=== PATIENT | male | born 1945 | race Caucasian/White ===

== ENCOUNTER 2017-05-02 13:59 | Emergency (ER) | payer OTHER ==
[2017-05-02 14:04] VITALS: BP 148/68; PULSE 58; RESP 18; TEMP 97.7; O2SAT 97
[2017-05-02] MEDS ORDERED: PROPARACAINE 0.5% 15 ML OPHT DROP OP ONE (14:12)
[2017-05-02] MEDS ORDERED: FLUORESCEIN SODIUM 1 MG STRIP OP ONE (14:12)
--- NOTE | 2017-05-02 14:33 | EDPHY ---
H & P Stated Complaint: irritated weepy l eye today - Personal History Current Tetanus/Diphtheria Vaccine: Yes - Medical/Surgical History Hx Asthma: No Hx Chronic Respiratory Disease: No Hx Diabetes: No Hx Cardiac Disease: No Hx Renal Disease: No Hx Cirrhosis: No Hx Alcoholism: No Hx HIV/AIDS: No Hx Splenectomy or Spleen Trauma: No Other PMH: prostate cancer - Social History Smoking Status: Never smoked HPI/ROS: Chief complaint: Left eye pain History of present illness: 71-year-old male presents to the emerged department for left eye pain. Patient states pain began this morning upon getting up. He has had associated tearing. He does wear hard contact lenses, he has not placed them in since symptoms began. He does not feel like his vision is changed with this. He denies other associated signs or symptoms including no fevers, no cold symptoms, no trauma, no pustules discharge from the eye. He does state his contact has been bothering him for the last week. He does take them out nightly. (Romeo Meyer) - Physical Exam Exam: General: Alert, nontoxic Eyes: Tearing of left eye. Left eye is diffusely injected. No ciliary flush. No subconjunctival hemorrhage. No hyphema. No hypopyon. Right eye unremarkable. PERRLA. EOM intact. Skin: Periorbital tissue unremarkable. (Romeo Meyer) Constitutional: Initial Vital Signs Temperature (C) 36.5 C 05/02/17 14:01 Heart Rate 58 L 05/02/17 14:01 Respiratory Rate 18 05/02/17 14:01 Blood Pressure 148/68 H 05/02/17 14:01 O2 Sat (%) 97 05/02/17 14:01 O2 Delivery Mode Room Air Allergies/Adverse Reactions: No Known Allergies Allergy (Unverified 05/02/17 14:01) Home Medications: Medication Instructions Recorded Moxifloxacin HCl [Vigamox] 1 drops OP TID 7 Days drops 05/02/17 SIMVASTATIN 05/02/17 Medical Decision Making Procedures: Patient's eye was stained with floor seen and examined with cobalt blue and white light, corneal abrasion noted at the 7 o'clock position. No foreign bodies noted. No cell and flare. No Syeda sign. Ocular pressures were tested x3 measurements of 11, 10 and 13 (Romeo Meyer) ED Course/Re-evaluation: Patient is discussed with my secondary supervising physician Dr. Mary Obrien. Patient presents to the emergency department for left eye pain. Appears to have corneal abrasion. Patient will be discharged home. He is prescribed Vigamox. He is asked to not use his contact lenses until he is seen by his side door worker in re-evaluated. Strict return precautions are given. Patient voiced understanding and agreement with plan. (Romeo Meyer) The patient was evaluated and managed by the physician human services assistant. I have reviewed this chart and I agree with the findings and plan of care as documented , as indicated by my signature. I am the secondary supervising physician. ( Mary Obrien) Differential Diagnosis: Included but not limited to corneal abrasion, corneal ulceration, keratitis, glaucoma, conjunctivitis (Romeo Meyer) - Data Points Medications Given: Discontinued Medications Fluorescein Sodium (Fxegl-E-Lsfuk) 1 mg OP EDNOW ONE Stop: 05/02/17 14:13 Last Admin: 05/02/17 15:18 Dose: 1 mg Proparacaine HCl (Alcaine 0.5%) 1 drops OP EDNOW ONE Stop: 05/02/17 14:13 Last Admin: 05/02/17 15:18 Dose: 1 drop Departure - Departure Disposition: Home, Routine, Self-Care Clinical Impression: Corneal abrasion due to contact lens Qualifiers: Laterality: left Qualified Code(s): H18.822 - Corneal disorder due to contact lens, left eye Condition: Good Instructions: Corneal Abrasion (ED) Additional Instructions: Follow-up with your eye doctor this week for recheck Do not use contact lenses until cleared to use them by your eye doctor If symptoms worsen or new symptoms develop return to the emergency room for recheck Referrals: CARLA VALLES [Primary Care Provider] - As per Instructions Prescriptions: Moxifloxacin HCl [Vigamox] 1 drops OP TID 7 Days drops
== END 2017-05-02 15:18 | disposition home or self-care (01) ==
DX: H18.822 Corneal disorder due to contact lens, left eye (principal); Z85.46 Personal history of malignant neoplasm of prostate